=== PATIENT | female | born 1930 | race Caucasian/White ===

== ENCOUNTER 2016-05-12 13:18 | Emergency (ER) | payer MEDICARE ==
[~2016-05-12] VITALS: Ht 162.6 cm; Wt 49.9 kg
[~2016-05-12 13:18] MED LIST: ARICEPT 5MG TAB5 MG PO; ASPIRIN 81MG TA81 MG PO; BISACODYL5 MG PO; ENOXAPARIN30 MG/0.3 IV; FERROUS SULFAT325 M2 PO; HYDROCODONE/ACE1 TA9 PO; PAXIL10 MG PO; POTASSIUM CHLO10 ME3 PO; PRILOSEC20 M1 PO; RISPERDAL 0.20.25 MG PO; TRAZODONE50 MG PO; VITAMIN D1000 IU PO; ZESTRIL30 M1 PO
[2016-05-12 13:39] LABS: URINE BILIRUBIN - DIPSTICK NEGATIVE (NEG); URINE BLOOD 3+ (NEG)
--- NOTE | 2016-05-12 13:42 | Emergency Room Report ---
History of Present Illness Time Seen by [id number] Presenting Problem in Triage Pt arrived:Ambulance Stretcher Presenting Problem:PER ASSISTED REPORT PT HAS DECREASED RESPONSIVENESS, STATED PT IS NORMALLY ALERT BUT CONFUSED BUT TODAY BY IS ALERT TO PAINFUL STIMULI ONLY PT WILL CRY OUT WHEN YOU MOVE HER Onset of symptoms date/time:05/12/16/ or onset unknown for:MEDICAL HX UNKNOWN Treatment Prior to Arrival: ENGINEERING TEACHER Provided by: Sepsis Risk Assessment: Temp: 98.1 B/P: 200/111 MAP: 140 Pulse: 81 Resp: 20 Recent fever? N Clinical Suspician of Infection? Y Mental Status: 3 - Acutely Altered Sepsis Risk:Severe Sepsis Risk Have you (or family members/close friends) recently traveled outside the [place]? N If Yes, where/when: Have you had exposure to infectious disease within the past month? N TB? Other? Specify: Source patient, RN notes reviewed, family, RN/MD Exam Limitations no limitations Comment This is a 85-year-old female patient, longterm resident from [facility] from [facility] brought in by EMS for evaluation of lethargy and confusion, noticed earlier this morning. Onset of symptoms is unclear as patient was apparently more alert before going to bed last night. assisted reports no fever, cough, weight loss. Patient has a long-standing history of dementia, and because of increased agitation the patient's longterm physician started her on Lortab approximately one week ago. Last dose of Lortab was early this morning, at 8 AM. ALLERGIES Coded Allergies: No Known Allergies (04/17/16) Home Medications Active Scripts DONEPEZIL HCL (Aricept 5MG) 5 MG PO QHS #30 TAB Ref 5 Prov: 04/21/16 HYDROCODONE/ACETAMINOPHEN (Hydrocodon-Acetaminophen 5-325) 1 TAB PO Q4HP PRN MODERATE TO SEVERE PAIN 30 Days Prov: 04/21/16 Enoxaparin Sodium (Enoxaparin 30MG) 30 MG IV Q12 21 Days Prov: 04/21/16 Bisacodyl (Bisacodyl 5MG TAB) 10 MG PO BIDP PRN CONSTIPATION #30 Ref 5 Prov: 04/21/16 Reported Medications ASPIRIN (Aspirin) 81 MG PO DAILY Trazodone Hcl (Trazodone HCl) 25 MG PO DAILY OMEPRAZOLE MAGNESIUM (Prilosec 20MG) 20 MG PO DAILY Lisinopril (Zestril) 30 MG PO DAILY CHOLECALCIFEROL (VITAMIN D3) (Vitamin D3) 1,000 IUNITS PO DAILY Ferrous Sulfate (Ferrous Sulfate 325MG) 325 MG PO DAILY POTASSIUM CHL (Potassium Chloride) 10 MEQ PO BID Risperidone (Risperdal 0.25MG Tab) 0.25 MG PO DAILY PAROXETINE HCL (Paxil) 10 MG PO DAILY History Medical History General CAD? No Angina: No [place]: No Hypertension? Yes Hyperlipidemia? No CHF? No DVT? No PE? No COPD? No Asthma? No Anemia? Yes GERD? Yes Gastric ulcers? No GI Bleed? No Hernia? No Thyroid Problems? No Hypothyroidism? No CVA? No Seizures? No Diabetes? No Renal Insuffiency? No End Stage Renal Disease? No UTI? No Stones? No BPH? No GB Disease: No Nephritic Syndrome? No Asplenia? No Hepatitis? No Sickle Cell Disease? No Arthritis? No Migraines? No Cataracts? No Glaucoma? No MRSA? No HIV? No TB? No Anxiety? No Depression? Yes Cancer? No More? Yes Additional hx: 1. DEMENTIA WITH BEHAVIOR DISTURBANCE 2. ALZHEIMER'S 3. INSOMNIA 4. DIARRHEA 5. HYPOKALEMIA Immunization Hx DT/Tetanus Unknown Flu [id number] Pneumonia Received In Past Surgical Hx Previous Surgery?Y L FEMUR REPAIR Social History Smoking Hx Smoker: Unknown if Ever Smoked Tobacco: No Packs/day N/A Alcohol Alcohol: No Review of Systems All Other Systems Reviewed and Negative Psychiatric/Neurological other (lethargy, confusion) Physical Exam Vital Signs Vital Signs Date Time Temp Pulse Resp B/P Pulse O2 O2 Flow FiO2 Ox Delivery Rate 05/12 1757 93 20 165/71 96 05/12 1615 93 20 187/74 96 05/12 1533 86 20 198/97 98 05/12 1437 77 20 184/100 95 05/12 1357 78 20 198/92 94 05/12 1323 98.1 81 20 200/111 97 General Appearance normal appearance, WD/WN, mild distress, lethargic, very sleepy Eye Exam - bilateral eye normal exam, bilateral eye PERRL, bilateral eye EOMI Neck normal inspection, non-tender, supple, full range of motion Respiratory Status Yes: trachea midline, chest symmetrical, non tender chest. No: respiratory distress. Lung Sounds bilateral: normal breath sounds, lungs clear. 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 No Comment After receiving IV antibiotics and IV Narcan the patient started waking up, recognizing her son at bedside, more alert and more awake. Is confirmed with the son the liver that was only started days ago which appears to have an impact on patient's cognitive level. Differential diagnosis: Acute cerebrovascular accident, medication side effect, occult infection. Plan is to send patient back to the longterm on oral antibiotics, and discontinue the Lortab at this time. Patient needs to follow-up with her PCP within 2 days. Results/Orders Laboratory Tests 05/12/16 1354: Sodium 142, Potassium 3.8, Chloride 104, Carbon Dioxide 31, BUN 26 H, Creatinine 1.3 H, Estimated Creat Clear 24 L, Estimated GFR (MDRD) 39 L, Glucose 117 H, Calcium 8.5, Total Bilirubin 0.5, AST 18, ALT 29, Alkaline Phosphatase 165 H, Total Protein 6.8, Albumin 2.7 L, Globulin 4.1 H, Albumin/ Globulin Ratio 0.7 L, WBC 8.2, RBC 3.19 L, Hgb 10.6 L, Hct 31.1 L, MCV 97.5, RDW 14.9, Plt Count 292, MPV 6.3 L, Gran % 83.3 H, Gran # 6.8, Lymphocytes % 11.4, Monocytes % 5.1, Eosinophils % 0.0 L, Basophils % 0.1, Lymphocytes # 0.9, Monocytes # 0.4, Eosinophils # 0.0, Basophils # 0.0, PUBS MCHC 34.2, MCH 33.3 H 05/12/16 1330: Urine Color YELLOW, Urine Appearance CLOUDY, Urine pH 6.0, Ur Specific [place] 1.025, Urine Protein 2+ H, Urine Ketones NEGATIVE, Urine Blood 3+ H, Urine Nitrate NEGATIVE, Urine Bilirubin NEGATIVE, Urine Urobilinogen 1.0, Ur Leukocyte Esterase 2+ H, Urine RBC 10-20, Urine WBC 50-100, Urine Bacteria 4+, Coarse Granular Casts OCC, Urine Glucose NEGATIVE Current Medication Orders Sig/Ruben Start time Last Medication Dose Route Stop Time Status Admin Hydralazine HCl 0 .STK-MED ONE 05/12 1602 DC .ROUTE Hydralazine HCl 10 MG ONCE ONE 05/12 1600 DC 05/12 IV 05/12 1601 1603 Hydralazine HCl 10 MG ONCE ONE 05/12 1530 DC / IV 05/12 1531 1528 Naloxone HCl 0.6 MG ONCE ONE 05/12 1530 DC 05/12 IV 05/12 1531 1528 Naloxone HCl 0 .STK-MED ONE 05/12 1526 DC .ROUTE Hydralazine HCl 0 .STK-MED ONE 05/12 1525 DC .ROUTE Ceftriaxone Sodium 0 .STK-MED ONE 05/12 1404 DC IV Sodium Chloride 50 ML .STK-MED ONE 05/12 1403 DC IV Ceftriaxone Sodium 1 GM ONCE ONE 05/12 1400 DC 05/12 Sodium Chloride 50 ML IV 05/12 1429 1403 Naloxone HCl 1 MG ONCE ONE 05/12 1345 CAN IV 05/12 1346 Sodium Chloride 10 ML PRN PRN 05/12 1345 DCD IV 05/13 1339 Orders Procedure Date/time Status DIET-NOTHING BY MOUTH 05/12 D Active IV SALINE LOCK 05/[address] HEAD REQ 05/12 1332 Complete CBC WITH AUTO DIFF 05/12 1332 Complete CHEM 12 PROFILE 05/12 1332 Complete CULTURE, URINE 05/12 1330 Active URINALYSIS/COMPLETE 05/12 1322 Complete XRAY/CT/US XRAY/CT/US CT head CT interpretation by discussed w/radiologist CT Results atrophy, no acute intracranial bleed Departure Departure Time of Disposition 1630 Disposition DC Home or Self Care(routine) Clinical Impression Primary Impression: Change in mental status Qualifiers: Altered mental status type: unspecified Qualified Code: R41.82 - Altered mental status, unspecified Secondary Impressions: Medication side effect UTI (urinary tract infection) Qualifiers: Urinary tract infection type: acute cystitis Hematuria presence: without hematuria Qualified Code: N30.00 - Acute cystitis without hematuria Condition STABLE Referrals EVE MILLS (Family) Patient Instructions DI for Adverse Drug Reaction -- Other, DI for Urinary Tract Infection (UTI) Additional Instructions Please take the medication prescribed as directed, drink plenty of fluids, stop the opioid pain medications at this time (Lortab). Follow-up with your longterm physician within 2 days if not better. Discharge Counseling Counseled pt/family regarding diagnosis, test results, medications/RX, home care, follow up needs Comment Please take the medication prescribed as directed, drink plenty of fluids, stop the opioid pain medications at this time (Lortab). Follow-up with your longterm physician within 2 days if not better. Prescriptions Current Visit Scripts NITROFURANTOIN MONOHYD/M-CRYST (Macrobid 100 MG Capsule) 100 MG PO BID #20 CAP ED Critical Care Critical Care No at [id number]
--- NOTE | 2016-05-12 13:42 | Emergency Room Report ---
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 N Clinical Suspician of Infection? Y Mental Status: 3 - Acutely Altered Sepsis Risk:Severe Sepsis Risk Have you (or family members/close friends) recently traveled outside the [place]? N If Yes, where/when: Have you had exposure to infectious disease within the past month? N TB? Other? Specify: Source patient, RN notes reviewed, family, RN/MD Exam Limitations no limitations Comment This is a 85-year-old female patient, custodial resident from [facility] from [facility] brought in by EMS for evaluation of lethargy and confusion, noticed earlier this morning. Onset of symptoms is unclear as patient was apparently more alert before going to bed last night. detention reports no fever, cough, weight loss. Patient has a long-standing history of dementia, and because of increased agitation the patient's custodial physician started her on Lortab approximately one week ago. Last dose of Lortab was early this morning, at 8 AM. ALLERGIES Coded Allergies: No Known Allergies (04/17/16) Home Medications Active Scripts DONEPEZIL HCL (Aricept 5MG) 5 MG PO QHS #30 TAB Ref 5 Prov: 04/21/16 HYDROCODONE/ACETAMINOPHEN (Hydrocodon-Acetaminophen 5-325) 1 TAB PO Q4HP PRN MODERATE TO SEVERE PAIN 30 Days Prov: 04/21/16 Enoxaparin Sodium (Enoxaparin 30MG) 30 MG IV Q12 21 Days Prov: 04/21/16 Bisacodyl (Bisacodyl 5MG TAB) 10 MG PO BIDP PRN CONSTIPATION #30 Ref 5 Prov: 04/21/16 Reported Medications ASPIRIN (Aspirin) 81 MG PO DAILY Trazodone Hcl (Trazodone HCl) 25 MG PO DAILY OMEPRAZOLE MAGNESIUM (Prilosec 20MG) 20 MG PO DAILY Lisinopril (Zestril) 30 MG PO DAILY CHOLECALCIFEROL (VITAMIN D3) (Vitamin D3) 1,000 IUNITS PO DAILY Ferrous Sulfate (Ferrous Sulfate 325MG) 325 MG PO DAILY POTASSIUM CHL (Potassium Chloride) 10 MEQ PO BID Risperidone (Risperdal 0.25MG Tab) 0.25 MG PO DAILY PAROXETINE HCL (Paxil) 10 MG PO DAILY History Medical History General CAD? No Angina: No [place]: No Hypertension? Yes Hyperlipidemia? No CHF? No DVT? No PE? No COPD? No Asthma? No Anemia? Yes GERD? Yes Gastric ulcers? No GI Bleed? No Hernia? No Thyroid Problems? No Hypothyroidism? No CVA? No Seizures? No Diabetes? No Renal Insuffiency? No End Stage Renal Disease? No UTI? No Stones? No BPH? No GB Disease: No Nephritic Syndrome? No Asplenia? No Hepatitis? No Sickle Cell Disease? No Arthritis? No Migraines? No Cataracts? No Glaucoma? No MRSA? No HIV? No TB? No Anxiety? No Depression? Yes Cancer? No More? Yes Additional hx: 1. DEMENTIA WITH BEHAVIOR DISTURBANCE 2. ALZHEIMER'S 3. INSOMNIA 4. DIARRHEA 5. HYPOKALEMIA Immunization Hx DT/Tetanus Unknown Flu [id number] Pneumonia Received In Past Surgical Hx Previous Surgery?Y L FEMUR REPAIR Social History Smoking Hx Smoker: Unknown if Ever Smoked Tobacco: No Packs/day N/A Alcohol Alcohol: No Review of Systems All Other Systems Reviewed and Negative Psychiatric/Neurological other (lethargy, confusion) Physical Exam Vital Signs Vital Signs Date Time Temp Pulse Resp B/P Pulse O2 O2 Flow FiO2 Ox Delivery Rate 05/12 1757 93 20 165/71 96 05/12 1615 93 20 187/74 96 05/12 1533 86 20 198/97 98 05/12 1437 77 20 184/100 95 05/12 1357 78 20 198/92 94 05/12 1323 98.1 81 20 200/111 97 General Appearance normal appearance, WD/WN, mild distress, lethargic, very sleepy Eye Exam - bilateral eye normal exam, bilateral eye PERRL, bilateral eye EOMI Neck normal inspection, non-tender, supple, full range of motion Respiratory Status Yes: trachea midline, chest symmetrical, non tender chest. No: respiratory distress. Lung Sounds bilateral: normal breath sounds, lungs clear. 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 No Comment After receiving IV antibiotics and IV Narcan the patient started waking up, recognizing her son at bedside, more alert and more awake. Is confirmed with the son the liver that was only started days ago which appears to have an impact on patient's cognitive level. Differential diagnosis: Acute cerebrovascular accident, medication side effect, occult infection. Plan is to send patient back to the custodial on oral antibiotics, and discontinue the Lortab at this time. Patient needs to follow-up with her PCP within 2 days. Results/Orders Laboratory Tests 05/12/16 1354: Sodium 142, Potassium 3.8, Chloride 104, Carbon Dioxide 31, BUN 26 H, Creatinine 1.3 H, Estimated Creat Clear 24 L, Estimated GFR (MDRD) 39 L, Glucose 117 H, Calcium 8.5, Total Bilirubin 0.5, AST 18, ALT 29, Alkaline Phosphatase 165 H, Total Protein 6.8, Albumin 2.7 L, Globulin 4.1 H, Albumin/ Globulin Ratio 0.7 L, WBC 8.2, RBC 3.19 L, Hgb 10.6 L, Hct 31.1 L, MCV 97.5, RDW 14.9, Plt Count 292, MPV 6.3 L, Gran % 83.3 H, Gran # 6.8, Lymphocytes % 11.4, Monocytes % 5.1, Eosinophils % 0.0 L, Basophils % 0.1, Lymphocytes # 0.9, Monocytes # 0.4, Eosinophils # 0.0, Basophils # 0.0, PUBS MCHC 34.2, MCH 33.3 H 05/12/16 1330: Urine Color YELLOW, Urine Appearance CLOUDY, Urine pH 6.0, Ur Specific [place] 1.025, Urine Protein 2+ H, Urine Ketones NEGATIVE, Urine Blood 3+ H, Urine Nitrate NEGATIVE, Urine Bilirubin NEGATIVE, Urine Urobilinogen 1.0, Ur Leukocyte Esterase 2+ H, Urine RBC 10-20, Urine WBC 50-100, Urine Bacteria 4+, Coarse Granular Casts OCC, Urine Glucose NEGATIVE Current Medication Orders Sig/Ruben Start time Last Medication Dose Route Stop Time Status Admin Hydralazine HCl 0 .STK-MED ONE 05/12 1602 DC .ROUTE Hydralazine HCl 10 MG ONCE ONE 05/12 1600 DC 05/12 IV 05/12 1601 1603 Hydralazine HCl 10 MG ONCE ONE 05/12 1530 DC / IV 05/12 1531 1528 Naloxone HCl 0.6 MG ONCE ONE 05/12 1530 DC 05/12 IV 05/12 1531 1528 Naloxone HCl 0 .STK-MED ONE 05/12 1526 DC .ROUTE Hydralazine HCl 0 .STK-MED ONE 05/12 1525 DC .ROUTE Ceftriaxone Sodium 0 .STK-MED ONE 05/12 1404 DC IV Sodium Chloride 50 ML .STK-MED ONE 05/12 1403 DC IV Ceftriaxone Sodium 1 GM ONCE ONE 05/12 1400 DC 05/12 Sodium Chloride 50 ML IV 05/12 1429 1403 Naloxone HCl 1 MG ONCE ONE 05/12 1345 CAN IV 05/12 1346 Sodium Chloride 10 ML PRN PRN 05/12 1345 DCD IV 05/13 1339 Orders Procedure Date/time Status DIET-NOTHING BY MOUTH 05/12 D Active IV SALINE LOCK 05/[address] HEAD REQ 05/12 1332 Complete CBC WITH AUTO DIFF 05/12 1332 Complete CHEM 12 PROFILE 05/12 1332 Complete CULTURE, URINE 05/12 1330 Active URINALYSIS/COMPLETE 05/12 1322 Complete XRAY/CT/US XRAY/CT/US CT head CT interpretation by discussed w/radiologist CT Results atrophy, no acute intracranial bleed Departure Departure Time of Disposition 1630 Disposition DC Home or Self Care(routine) Clinical Impression Primary Impression: Change in mental status Qualifiers: Altered mental status type: unspecified Qualified Code: R41.82 - Altered mental status, unspecified Secondary Impressions: Medication side effect UTI (urinary tract infection) Qualifiers: Urinary tract infection type: acute cystitis Hematuria presence: without hematuria Qualified Code: N30.00 - Acute cystitis without hematuria Condition STABLE Referrals EVE MILLS (Family) Patient Instructions DI for Adverse Drug Reaction -- Other, DI for Urinary Tract Infection (UTI) Additional Instructions Please take the medication prescribed as directed, drink plenty of fluids, stop the opioid pain medications at this time (Lortab). Follow-up with your custodial physician within 2 days if not better. Discharge Counseling Counseled pt/family regarding diagnosis, test results, medications/RX, home care, follow up needs Comment Please take the medication prescribed as directed, drink plenty of fluids, stop the opioid pain medications at this time (Lortab). Follow-up with your custodial physician within 2 days if not better. Prescriptions Current Visit Scripts NITROFURANTOIN MONOHYD/M-CRYST (Macrobid 100 MG Capsule) 100 MG PO BID #20 CAP ED Critical Care Critical Care No at [id number]
[2016-05-12 14:11] LABS: LYMPH # 0.9 K/mm3 (0.7-4.5); LYMPH % 11.4 % (10-50.0)
[2016-05-12 14:16] LABS: HEMOGLOBIN 10.6 g/dL (12.2-16.2)
--- NOTE | 2016-05-12 14:41 | RADIOLOGY REPORT PS360 ---
CT HEAD W/O CONTRAST HISTORY: Mental status change, confusion, disorientation, altered level of consciousness CHANGE IN MENTAL STATUS ORDERING PHYSICIAN: Kenneth Wood MD PATIENT AGE: 85 years COMPARISON: 04/16/2016 TECHNIQUE: Axial images obtained without contrast. Brain and bone windows reviewed. FINDINGS: No midline shift, mass effect, intracranial hemorrhage, hydrocephalus, or extra-axial fluid collection is evident. There is generalized atrophy with hypoattenuation in the subcortical and periventricular region consistent with ischemic gliotic change from microvascular disease. The calvarium has an unremarkable appearance. No mastoid effusion. The visualized paranasal sinuses are unremarkable. IMPRESSION: 1. No change with no acute finding compared to 04/16/2016. 2. Atrophy with chronic ischemic change.
[2016-05-12] MEDS ORDERED: MACROBID100 M3 PO (17:00)
[2016-05-12 17:57] VITALS: BP 165/71
== END 2016-05-12 17:58 | disposition home or self-care (01) ==
LOC: ER 13:18
PROVIDERS: Emergency Medicine
DX: R41.82 Altered mental status, unspecified (principal); N30.00 Acute cystitis without hematuria; I10 Essential (primary) hypertension; D64.9 Anemia, unspecified
CPT/HCPCS: J2310